=== PATIENT | male | born 1985 | race African-American/Black ===

== ENCOUNTER 2017-02-08 09:34 | Emergency (ER) | payer OTHER ==
[~2017-02-08] VITALS: Ht 177.8 cm; Wt 97.7 kg
[2017-02-08 09:40] VITALS: BP 148/86; PULSE 77; TEMP 98
[2017-02-08] MEDS ORDERED: AMOXICILLIN 50500 MG PO (10:03)
[2017-02-08] MEDS ORDERED: NORCO 325 MG-51 TAB PO (10:03)
== END 2017-02-08 10:15 | disposition home or self-care (01) ==
LOC: COL.ER 09:34
DX: K04.7 Periapical abscess without sinus (principal); K08.89 Other specified disorders of teeth and supporting structures; R46.0 Very low level of personal hygiene

== ENCOUNTER 2018-09-11 23:45 | Emergency (ER) | payer SELFPAY ==
[~2018-09-11] VITALS: Ht 177.8 cm; Wt 100.0 kg
[~2018-09-11 23:45] MED LIST: AMOXICILLIN 50500 MG PO; NORCO 325 MG-51 TAB PO
[2018-09-11 23:48] VITALS: BP 141/86; PULSE 80; TEMP 98
[2018-09-12 00:36] LABS: COLLECTION METHOD CLEAN CATCH
[2018-09-12 00:50] LABS: MUCOUS Present /lpf; PH 5 (5-8); SQUAMOUS EPITHELIAL 0-2 /hpf; URINE APPEARANCE Hazy; URINE BACTERIA None Seen /hpf; URINE BILIRUBIN Negative (NEGATIVE); URINE BLOOD 1+ (NEGATIVE); URINE COLOR Yellow; URINE GLUCOSE Negative (NEGATIVE); URINE KETONE Negative (NEGATIVE); URINE LEUKOCYTE ESTERASE 3+ (NEGATIVE); URINE NITRATE Negative (NEGATIVE); URINE PROTEIN(semi-quant) 1+ (NEGATIVE); URINE RBC 20-50 /hpf
== END 2018-09-12 01:15 | disposition home or self-care (01) ==
LOC: COL.ER 23:45
PROVIDERS: Nurse Practitioner
DX: N34.2 Other urethritis (principal); F12.90 Cannabis use, unspecified, uncomplicated
CPT/HCPCS: J0696

== ENCOUNTER 2019-09-10 18:04 | Emergency (ER) | payer SELFPAY ==
[~2019-09-10] VITALS: Ht 177.8 cm; Wt 104.5 kg
[2019-09-10 19:28] LABS: STREP SCREEN NEGATIVE
[2019-09-10 20:41] VITALS: BP 136/86; PULSE 89; TEMP 98.9
== END 2019-09-10 20:41 | disposition home or self-care (01) ==
LOC: COL.ER 18:04
PROVIDERS: Emergency Medicine
DX: B34.9 Viral infection, unspecified (principal)
CPT/HCPCS: J1885; J7030

== ENCOUNTER 2021-04-22 19:38 | Emergency (ER) | payer SELFPAY ==
[~2021-04-22] VITALS: Ht 177.8 cm; Wt 112.7 kg
[2021-04-22 19:55] VITALS: TEMP 98.7
[2021-04-22] MEDS ORDERED: FLEXERIL 1010 MG/TAB PO (21:21)
[2021-04-22 21:40] VITALS: BP 126/76; PULSE 87
== END 2021-04-22 21:41 | disposition home or self-care (01) ==
LOC: COL.ER 19:38
DX: S29.019A Strain of muscle and tendon of unspecified wall of thorax, initial encounter (principal); F17.200 Nicotine dependence, unspecified, uncomplicated; X50.0XXA Overexertion from strenuous movement or load, initial encounter; Y99.0 Civilian activity done for income or pay
CPT/HCPCS: J1885; J2360

== ENCOUNTER 2022-01-13 20:34 | Emergency (ER) | payer SELFPAY ==
[~2022-01-13] VITALS: Ht 177.8 cm; Wt 106.8 kg
[~2022-01-13 20:34] MED LIST changes: +FLEXERIL 1010 MG/TAB PO
[2022-01-13 20:37] VITALS: TEMP 98.2
[2022-01-13 22:16] VITALS: BP 152/87; PULSE 74
== END 2022-01-13 22:16 | disposition home or self-care (01) ==
LOC: COL.ER 20:34
DX: T25.322A Burn of third degree of left foot, initial encounter (principal); X58.XXXA Exposure to other specified factors, initial encounter; Y92.59 Other trade areas as the place of occurrence of the external cause; Y99.0 Civilian activity done for income or pay

== ENCOUNTER 2022-01-17 10:44 | Outpatient (RCR) | payer OTHER | END 2022-01-22 | disposition still patient (30) | LOC: WSOH | DX: T25.322A Burn of third degree of left foot, initial encounter (principal); Y99.0 Civilian activity done for income or pay ==

== ENCOUNTER 2022-05-24 15:34 | Emergency (ER) | payer OTHER ==
[~2022-05-24] VITALS: Ht 177.8 cm; Wt 102.7 kg
[2022-05-24 15:40] VITALS: TEMP 98.3
[2022-05-24] MEDS ORDERED: FLAGYL500 MG PO (16:27)
[2022-05-24] MEDS ORDERED: DOXYCYCLINE 10100 MG PO (16:27)
[2022-05-24 16:50] LABS: COLLECTION METHOD RANDOM VOIDED
[2022-05-24 16:54] LABS: URINE APPEARANCE Clear (CLEAR/HAZY); URINE BLOOD Negative (NEGATIVE); URINE COLOR Yellow (YELLOW); URINE GLUCOSE Negative (NEGATIVE); URINE KETONE Negative (NEGATIVE); URINE NITRATE Negative (NEGATIVE); URINE PROTEIN(semi-quant) Negative (NEGATIVE)
[2022-05-24 16:55] VITALS: BP 148/111; PULSE 85
[2022-05-24 16:56] LABS: MUCOUS Present (NOT PRESENT); SQUAMOUS EPITHELIAL 0-2 /hpf (0-10); URINE BACTERIA None Seen /hpf (NONE SEEN); URINE RBC 0-2 /hpf (0-2)
== END 2022-05-24 16:55 | disposition home or self-care (01) ==
LOC: COL.ER 15:34
PROVIDERS: Physician Assistant
DX: Z20.2 Contact with and (suspected) exposure to infections with a predominantly sexual mode of transmission (principal); Z28.311 Partially vaccinated for COVID-19
CPT/HCPCS: J0696

== ENCOUNTER 2023-07-21 18:51 | Emergency (ER) | payer OTHER ==
[~2023-07-21] VITALS: Ht 177.8 cm; Wt 104.5 kg
[~2023-07-21 18:51] MED LIST changes: +DOXYCYCLINE 10100 MG PO; +FLAGYL500 MG PO
[2023-07-21 22:20] LABS: BASO % 0.5 % (0.0-2.0); EOS # 0.1 K/mm3 (0.0-0.7); EOS % 1.4 % (0.0-4.0); GRAN % 55.9 % (42.2-75.2); HEMATOCRIT 40.8 % (42.0-52.0); LYMPH # 3.2 K/mm3 (1.2-3.4); MEAN CELL VOLUME 90 fl (80.0-100.0); MEAN CORPUSCULAR HEMOGLOBIN 31 pg (27-31); MEAN CORPUSCULAR HGB CONC 34 g/dl (33.0-37.0); MEAN PLATELET VOLUME 10.9 fl (7.4-10.4); MONO # 0.5 K/mm3 (0.1-0.6); MONO % 6.1 % (1.7-9.3); PLATELET COUNT 222 K/mm3 (130-400); RED BLOOD COUNT 4.54 M/mm3 (4.20-5.60); REDCELL DISTRIBUTION WIDTH-CV 13.2 % (11.5-14.5)
[2023-07-21 22:44] LABS: ALBUMIN 4.2 gm/dL (3.5-5.0); BILIRUBIN,TOTAL 0.7 mg/dL (0.2-1.2); CREATININE, serum 0.96 mg/dL (0.72-1.25)
[2023-07-21 23:00] VITALS: TEMP 97.8
[2023-07-22] MEDS ORDERED: ZESTRIL 20MG TA20 MG PO (00:23)
[2023-07-22 00:34] VITALS: BP 155/101; PULSE 78
== END 2023-07-22 00:35 | disposition home or self-care (01) ==
LOC: COL.ER 18:51
PROVIDERS: Emergency Medicine
DX: I10 Essential (primary) hypertension (principal)

== ENCOUNTER → 2023-10-02 | Outpatient (CLI) | payer OTHER ==
[~2023-10-02] MED LIST changes: +ZESTRIL 20MG TA20 MG PO
== END ==
LOC: COL.RAD 09:43
DX: H47.10 Unspecified papilledema (principal)
CPT/HCPCS: A9575

== ENCOUNTER 2024-03-16 15:41 | Emergency (ER) | payer OTHER ==
[~2024-03-16] VITALS: Ht 177.8 cm; Wt 106.8 kg
[2024-03-16 15:47] VITALS: TEMP 97.1
[2024-03-16] MEDS ORDERED: Acetamin/Butalbital/Caffeine 325-50-40 MG TAB PO ONE (16:15)
[2024-03-16] MEDS ORDERED: diphenhydrAMINE 50 MG/ML 1 ML VIAL IV ONE (16:15)
[2024-03-16] MEDS ORDERED: Ketorolac 15 MG/ML VIAL IV ONE (16:15)
[2024-03-16] MEDS ORDERED: FIORICET 325 MG1 TA1 PO (17:36)
[2024-03-16 18:01] VITALS: BP 127/87; PULSE 81
== END 2024-03-16 18:01 | disposition home or self-care (01) ==
LOC: COL.ER 15:41
DX: G97.1 Other reaction to spinal and lumbar puncture (principal)
CPT/HCPCS: J0780; J1200; J1885

== ENCOUNTER → 2024-07-23 | Outpatient (CLI) | payer OTHER ==
[~2024-07-23] MED LIST changes: +FIORICET 325 MG1 TA1 PO
== END ==
LOC: COL.RAD 08:30
DX: H47.10 Unspecified papilledema (principal); H53.9 Unspecified visual disturbance